=== PATIENT | male | born 1975 | race Caucasian/White ===

== ENCOUNTER 2016-09-12 20:06 | Emergency (ER) | payer SELFPAY ==
[~2016-09-12] VITALS: Ht 167.6 cm; Wt 91.8 kg
[~2016-09-12 20:06] MED LIST: BACT800T5 PO; CLIN1CAP5 PO; PRED20 PO; VENTAER INH; ZITHTAB6 PO
[2016-09-12 20:08] VITALS: BP 122/71; PULSE 100; RESP 16; TEMP 98.8; O2SAT 96
--- NOTE | 2016-09-12 22:10 | PD ---
HPI Chief Complaint: Edema Time Seen by Provider: 22:10 Travel History International Travel<30 days: No Contact w/Intl Traveler<30days: No Traveled to known affect area: No History of Present Illness HPI 40-year-old male with a history of IV drug use presents to the emergency department for evaluation of left wrist and hand swelling for 2 days. The patient states that he does inject into his left wrist and arm. States that he uses IV Dilaudid and cocaine, last used these drugs 2 days ago. States that he checked himself into [facility] yesterday. States he was having a little bit of swelling and pain in the left wrist and hand so he was started on Bactrim and Keflex by the facility. States that today the swelling and pain worsened and he had a fever of 103F 4 hours ago at the facility, was given Motrin for his fever which also slightly improved his pain. Denies any injury or trauma to the hand or wrist. Denies any other medical conditions. Denies, chills, nausea, vomiting, numbness or tingling, cough or cold symptoms, chest pain, shortness of breath. No other complaints. PFSH Past Medical History Hx Anticoagulant Therapy: No Bipolar Disorder: Yes Depression: Yes Cardiovascular Problems: No Chemotherapy: No Cerebrovascular Accident: No Diabetes: No Diminished Hearing: No Musculoskeletal: Yes (CHRONIC LOW BACK PAIN) Respiratory: No Immunizations Current: No Past Surgical History Hysterectomy: No Oral Surgery: Yes (hx tmj, ROOT CANAL RT UPPER) Tonsillectomy: Yes (AND ADNOIDS AGE 14) Social History Alcohol Use: No (PT STATES HE QUIT) Tobacco Use: Yes (1/2 PPD) Substance Use: Yes (cocaine and dilaudid iv use) Allergies-Medications (Allergen,Severity, Reaction): Coded Allergies: *MDRO Multi-Drug Resistant Organism (Verified Allergy, Unknown, 09/12/16) MRSA Reported Meds & Prescriptions Reported Meds & Active Scripts Active Bactrim DS (Sulfamethoxazole-Trimethoprim) 800-160 Mg Tab 1 Tab PO BID 14 Days Clindamycin (Clindamycin HCl) 150 Mg Cap 300 Mg PO Q6H 14 Days Review of Systems Except as stated in HPI: all other systems reviewed are Neg Physical Exam Narrative GENERAL: Well-nourished and well-developed male patient in no acute distress. SKIN: Warm and dry. HEAD: Normocephalic and atraumatic. EYES: No injection, drainage, or hyphema noted. PERRLA. EOMI. ENT: No nasal drainage noted. Oropharynx is clear. NECK: Supple and the trachea is midline. CARDIOVASCULAR: Regular rate and rhythm. RESPIRATORY: Breath sounds are equal bilaterally with no accessory muscle use, wheezing, rhonchi, or crackles. GASTROINTESTINAL: Abdomen is soft, non-tender, and nondistended. MUSCULOSKELETAL: There is swelling along the radial aspect of the left wrist with tenderness to palpation, the left dorsal hand is swollen and tender as well. Warm to touch with my erythema. No obvious deformities, cyanosis, or ecchymosis is present throughout the upper and lower extremities. Patient has full range of motion without any signs of neurovascular compromise. Radial pulses 2+ bilaterally. NEUROLOGICAL: Awake, alert, and oriented. Normal speech and gait. Cranial nerves are grossly intact. Data Data Last Documented VS Vital Signs Date Time Temp Pulse Resp B/P Pulse Ox O2 Delivery O2 Flow Rate FiO2 09/12/16 22:11 16 09/12/16 20:08 98.8 100 122/71 96 Room Air Orders Complete Blood Count With Diff (09/12/16 22:07) Comprehensive Metabolic Panel (09/12/16 22:07) Lactic Acid Sepsis Protocol (09/12/16 22:07) Blood Culture (09/12/16 22:07) Ecg Monitoring (09/12/16 22:07) Iv Access Insert/Monitor (09/12/16 22:07) C-Reactive Protein (Crp) (09/12/16 22:07) Westergren Sedimentation Rate (09/12/16 22:07) Ketorolac Inj (Toradol Inj) (09/12/16 22:15) [facility] Medical Decision Making Medical Screen Exam Complete: Yes Emergency Medical Condition: Yes Differential Diagnosis Cellulitis versus abscess versus IV drug use Narrative Course 40-year-old male presents to the emergency department for evaluation of left hand and wrist swelling and pain at the site of IV injection. Patient is afebrile here in the emergency department. His heart rate is tachycardic at 100 bpm. Otherwise vital signs are stable. IV access is obtained, labs drawn and sent. Patient is administered Toradol 30 mg IV for pain. Patient signed out to Dr. Webb who will assume care of the patient and disposition. Chelsea Elkins 27, 2017 22:10
[2016-09-12] MEDS ORDERED: KETOROLAC TROMETHAMINE 30 MG/ML (IVP) VIAL IV PUSH ONE (22:15)
--- NOTE | 2016-09-12 23:53 | PD ---
Physical Exam Date Seen by Provider: Sep 12, 2016 Time Seen by Provider: 22:30 Narrative Patient presents to us from [facility] for a swollen, painful lesion on his left forearm. He also reportedly had a fever. Data Data Last Documented VS Vital Signs Date Time Temp Pulse Resp B/P Pulse Ox O2 Delivery O2 Flow Rate FiO2 09/12/16 22:11 16 09/12/16 20:08 98.8 100 122/71 96 Room Air Orders Complete Blood Count With Diff (09/12/16 22:07) Comprehensive Metabolic Panel (09/12/16 22:07) Lactic Acid Sepsis Protocol (09/12/16 22:07) Blood Culture (09/12/16 22:07) Ecg Monitoring (09/12/16 22:07) Iv Access Insert/Monitor (09/12/16 22:07) C-Reactive Protein (Crp) (09/12/16 22:07) Westergren Sedimentation Rate (09/12/16 22:07) Ketorolac Inj (Toradol Inj) (09/12/16 22:15) Labs Laboratory Tests Test 09/12/16 23:45 White Blood Count 14.2 TH/MM3 Red Blood Count 4.79 MIL/MM3 Hemoglobin 13.7 GM/DL Hematocrit 40.5 % Mean Corpuscular Volume 84.6 FL Mean Corpuscular Hemoglobin 28.7 PG Mean Corpuscular Hemoglobin 33.9 % Concent Red Cell Distribution Width 15.8 % Platelet Count 239 TH/MM3 Mean Platelet Volume 7.7 FL Neutrophils (%) (Auto) 64.7 % Lymphocytes (%) (Auto) 26.7 % Monocytes (%) (Auto) 7.0 % Eosinophils (%) (Auto) 1.0 % Basophils (%) (Auto) 0.6 % Neutrophils # (Auto) 9.2 TH/MM3 Lymphocytes # (Auto) 3.8 TH/MM3 Monocytes # (Auto) 1.0 TH/MM3 Eosinophils # (Auto) 0.1 TH/MM3 Basophils # (Auto) 0.1 TH/MM3 CBC Comment DIFF FINAL Differential Comment Erythrocyte Sedimentation Rate 15 mm/hr Sodium Level 139 MEQ/L Potassium Level 3.9 MEQ/L Chloride Level 105 MEQ/L Carbon Dioxide Level 28.0 MEQ/L Anion Gap 6 MEQ/L Blood Urea Nitrogen 14 MG/DL Creatinine 1.02 MG/DL Estimat Glomerular Filtration 80 ML/MIN Rate Random Glucose 90 MG/DL Lactic Acid Level 2.7 mmol/L Calcium Level 8.5 MG/DL Total Bilirubin 0.3 MG/DL Aspartate Amino Transf 19 U/L (AST/SGOT) Alanine Aminotransferase 55 U/L (ALT/SGPT) Alkaline Phosphatase 57 U/L C-Reactive Protein 2.20 MG/DL Total Protein 7.7 GM/DL Albumin 3.8 GM/DL MDM Supervised Visit with WICHO: Yes Narrative Course I, Dr. Webb, have reviewed the advance practice practitioner's documentation and am in agreement, met with the patient face to face, made the diagnosis, and the medical decision making was done by me. *My assessment and Findings: He has erythema, warmth, swelling and tenderness on the left forearm. There is no fluctuance. CBC & BMP Diagram 09/12/16 23:45 Sedimentation rate is 15. Lactic acid is 2.7. C-reactive protein is 2.2. I was in the process of ordering antibiotics for him when he reported that he wanted to leave AMA. He is reportedly a voluntary patient. He states that he has antibiotics for the cellulitis in his left arm. He is lucid and capable of making the decision to leave AMA. AMA: The risks of leaving against medical advice without further evaluation treatment were discussed with the patient. These risks include sepsis, osteomyelitis, eventual amputation and . Diagnosis Primary Impression: Cellulitis Qualified Code: L03.114 - Cellulitis of left upper extremity Disposition: 07 AGAINST MEDICAL ADVICE Condition: Stable Ayana Webb MD Sep 12, 2016 23:53
[2016-09-12 23:56] LABS: AUTOMATED NEUTROPHIL # 9.2 TH/MM3 (1.8-7.7); BASOPHIL # 0.1 TH/MM3 (0-0.2); BASOPHIL % 0.6 % (0.0-2.0); EOSINOPHIL # 0.1 TH/MM3 (0-0.4); HEMATOCRIT 40.5 % (39.0-51.0); HEMO FLAGS DIFF FINAL; LYMPH % 26.7 % (9.0-44.0); LYMPHOCYTE # 3.8 TH/MM3 (1.0-4.8); MEAN CELL VOLUME 84.6 FL (80.0-100.0); MEAN CORPUSCULAR HEMOGLOBIN 28.7 PG (27.0-34.0); MEAN CORPUSCULAR HGB CONC 33.9 % (32.0-36.0); NEUT % 64.7 % (16.0-70.0); PLATELET COUNT 239 TH/MM3 (150-450); RED BLOOD COUNT 4.79 MIL/MM3 (4.50-5.90); RED CELL DISTRIBUTION WIDTH 15.8 % (11.6-17.2); WHITE BLOOD COUNT 14.2 TH/MM3 (4.0-11.0)
[2016-09-13 00:26] LABS: ANION GAP 6 MEQ/L (5-15); AST (GOT) 19 U/L (15-37); BLOOD UREA NITROGEN 14 MG/DL (7-18); CHLORIDE 105 MEQ/L (98-107); GLOMERULAR FILTRATION RATE 80 ML/MIN (>89); POTASSIUM 3.9 MEQ/L (3.5-5.1); SODIUM (NA) 139 MEQ/L (136-145)
[2016-09-13 00:29] LABS: ALKALINE PHOSPHATASE 57 U/L (45-117); ALT (GPT) 55 U/L (12-78); TOTAL BILIRUBIN ADULT 0.3 MG/DL (0.2-1.0)
[2016-09-13] MEDS ORDERED: LORazepam 2 MG/ML VIAL IV PUSH ONE (01:00)
[2016-09-13] MEDS ORDERED: VANCOMYCIN INJ 1,000 MG in SODIUM CHLOR 0.9% 250 ML INJ 250 ML IV ONE (01:00)
[2016-09-13] MEDS ORDERED: PIPERACIL-TAZO 4.5 GM PREMIX 100 ML IV ONE (01:00)
[2016-09-13 01:45] VITALS: BP 116/71; PULSE 92; RESP 16; O2SAT 100
[2016-09-13 01:49] LABS: LACTIC ACID GHOST NOT REPORTABLE
[2016-09-14] MEDS ORDERED: CEPH-460 PO (18:43)
[2016-09-14] MEDS ORDERED: CLIN1CAP5 PO (20:24)
== END 2016-09-13 03:34 ==
LOC: NEPA 20:06
DX: L03.114 Cellulitis of left upper limb (principal); R50.9 Fever, unspecified; R00.0 Tachycardia, unspecified; F17.200 Nicotine dependence, unspecified, uncomplicated; Z86.59 Personal history of other mental and behavioral disorders; Z87.39 Personal history of other diseases of the musculoskeletal system and connective tissue; Z53.29 Procedure and treatment not carried out because of patient's decision for other reasons
CPT/HCPCS: 80053; 83605; 85025; 85652; 86140; 87040; 96365; 96367; 96375; 99283; J1885; J2060; J2543; J3370; J7050

== ENCOUNTER 2016-09-14 15:05 | Emergency (ER) | payer SELFPAY ==
[~2016-09-14] VITALS: Ht 167.6 cm; Wt 91.5 kg
[2016-09-14 15:06] VITALS: BP 138/66; PULSE 92; RESP 20; TEMP 98.5; O2SAT 99
--- NOTE | 2016-09-14 17:55 | PD ---
HPI Chief Complaint: Skin Problem Time Seen by Provider: 17:54 Travel History International Travel<30 days: No Contact w/Intl Traveler<30days: No Traveled to known affect area: No History of Present Illness HPI 40-year-old male presents to the emergency department for evaluation of worsening left forearm abscess. Patient has history of IV drug use. He was seen and evaluated 2 days ago and left against medical advice. Patient reports worsening, pain, redness, swelling. Pain is an 8 out of 10 to a 10 out of 10. This is exacerbated by movement or touch. Patient states he has been taking antibiotics that were given to him. Denies any chest tightness. No difficulty breathing. Does report subjective fever and chills. No other symptoms to report. PFSH Past Medical History Hx Anticoagulant Therapy: No Bipolar Disorder: Yes Depression: Yes Cardiovascular Problems: No Chemotherapy: No Cerebrovascular Accident: No Diabetes: No Diminished Hearing: No Musculoskeletal: Yes (CHRONIC LOW BACK PAIN) Respiratory: No Immunizations Current: Yes Past Surgical History Hysterectomy: No Oral Surgery: Yes (hx tmj, ROOT CANAL RT UPPER) Tonsillectomy: Yes (AND ADNOIDS AGE 14) Social History Alcohol Use: No (PT STATES HE QUIT) Tobacco Use: Yes (1/2 PPD) Substance Use: Yes (cocaine and dilaudid iv use) Allergies-Medications (Allergen,Severity, Reaction): Coded Allergies: *MDRO Multi-Drug Resistant Organism (Verified Allergy, Unknown, 09/14/16) MRSA Reported Meds & Prescriptions Reported Meds & Active Scripts Active Bactrim DS (Sulfamethoxazole-Trimethoprim) 800-160 Mg Tab 1 Tab PO BID 14 Days Reported Keflex (Cephalexin) 500 Mg Cap 500 Mg PO Q8H Review of Systems Except as stated in HPI: all other systems reviewed are Neg Physical Exam Narrative GENERAL: Unkempt but well-nourished male patient, ambulatory no acute distress SKIN: There is an indurated area in the distal left forearm which measures about 7 cm in diameter. It is fluctuant but there is no pointing or drainage. There is a zone of inflammation around it but no lymphangitis. HEAD: Atraumatic. Normocephalic. EYES: Pupils equal and round. No scleral icterus. No injection or drainage. ENT: No nasal bleeding or discharge. Mucous membranes pink and moist. NECK: Trachea midline. No JVD. CARDIOVASCULAR: Elevated rate and rhythm. No murmur appreciated. RESPIRATORY: No accessory muscle use. Clear to auscultation. Breath sounds equal bilaterally. GASTROINTESTINAL: Abdomen soft, non-tender, nondistended. Hepatic and splenic margins not palpable. MUSCULOSKELETAL: No obvious deformities. No clubbing. No cyanosis. . NEUROLOGICAL: Awake and alert. No obvious cranial nerve deficits Normal speech. Data Data Last Documented VS Vital Signs Date Time Temp Pulse Resp B/P Pulse Ox O2 Delivery O2 Flow Rate FiO2 09/14/16 19:11 89 16 123/70 97 Room Air 09/14/16 18:44 99.2 Orders Complete Blood Count With Diff (09/14/16 17:54) Basic Metabolic Panel (Bmp) (09/14/16 17:54) Lactic Acid Sepsis Protocol (09/14/16 17:54) Blood Culture (09/14/16 17:56) Labs Laboratory Tests Test 09/14/16 18:18 White Blood Count 12.0 TH/MM3 Red Blood Count 4.70 MIL/MM3 Hemoglobin 13.4 GM/DL Hematocrit 39.4 % Mean Corpuscular Volume 83.9 FL Mean Corpuscular Hemoglobin 28.4 PG Mean Corpuscular Hemoglobin 33.9 % Concent Red Cell Distribution Width 15.7 % Platelet Count 269 TH/MM3 Mean Platelet Volume 7.7 FL Neutrophils (%) (Auto) 70.3 % Lymphocytes (%) (Auto) 20.8 % Monocytes (%) (Auto) 6.1 % Eosinophils (%) (Auto) 2.3 % Basophils (%) (Auto) 0.5 % Neutrophils # (Auto) 8.4 TH/MM3 Lymphocytes # (Auto) 2.5 TH/MM3 Monocytes # (Auto) 0.7 TH/MM3 Eosinophils # (Auto) 0.3 TH/MM3 Basophils # (Auto) 0.1 TH/MM3 CBC Comment DIFF FINAL Differential Comment Sodium Level 140 MEQ/L Potassium Level 4.4 MEQ/L Chloride Level 106 MEQ/L Carbon Dioxide Level 26.3 MEQ/L Anion Gap 8 MEQ/L Blood Urea Nitrogen 14 MG/DL Creatinine 0.84 MG/DL Estimat Glomerular Filtration 101 ML/MIN Rate Random Glucose 98 MG/DL Lactic Acid Level 1.2 mmol/L Calcium Level 8.8 MG/DL [facility] Medical Decision Making Medical Screen Exam Complete: Yes Emergency Medical Condition: Yes Medical Record Reviewed: Yes Differential Diagnosis Abscess versus tenosynovitis versus cellulitis versus sepsis Narrative Course 40-year-old male presents to emergency department for evaluation. Workup is initiated in triage. Once a medical bed becomes available, patient will be transferred and care assumed by that provider. Condition: Stable Becca Chang Sep 14, 2016 17:54
[2016-09-14 18:31] LABS: AUTOMATED NEUTROPHIL # 8.4 TH/MM3 (1.8-7.7); BASOPHIL # 0.1 TH/MM3 (0-0.2); BASOPHIL % 0.5 % (0.0-2.0); EOSINOPHIL # 0.3 TH/MM3 (0-0.4); EOSINOPHIL % 2.3 % (0.0-4.0); HEMATOCRIT 39.4 % (39.0-51.0); HEMO FLAGS DIFF FINAL; LYMPH % 20.8 % (9.0-44.0); LYMPHOCYTE # 2.5 TH/MM3 (1.0-4.8); MEAN CELL VOLUME 83.9 FL (80.0-100.0); MEAN CORPUSCULAR HEMOGLOBIN 28.4 PG (27.0-34.0); MEAN CORPUSCULAR HGB CONC 33.9 % (32.0-36.0); MONO % 6.1 % (0.0-8.0); NEUT % 70.3 % (16.0-70.0); PLATELET COUNT 269 TH/MM3 (150-450); RED CELL DISTRIBUTION WIDTH 15.7 % (11.6-17.2)
[2016-09-14] MEDS ORDERED: CEPH-460 PO (18:43)
[2016-09-14 18:44] VITALS: BP 119/79; PULSE 87; RESP 16; TEMP 99.2; O2SAT 96
[2016-09-14 18:47] LABS: BICARBONATE 26.3 MEQ/L (21.0-32.0); POTASSIUM 4.4 MEQ/L (3.5-5.1)
[2016-09-14 19:11] VITALS: BP 123/70; PULSE 89; RESP 16; O2SAT 97
[2016-09-14] MEDS ORDERED: ACETAMINOPHEN/HYDROcodone 325 MG/5 MG TAB PO ONE (19:45)
[2016-09-14] MEDS ORDERED: LIDOCAINE 1%/EPINEPHrine 1:100,000 SOLN 20 ML VIAL INFIL ONE (19:45)
--- NOTE | 2016-09-14 19:45 | PD ---
Physical Exam Time Seen by Provider: 19:45 Narrative 40-year-old male with a history of IV drug use presents to the emergency department for evaluation of left wrist swelling and pain. Patient was seen by provider in triage were initiated workup, please see her documentation. Patient was seen by this provider 3 days ago for left wrist swelling and cellulitis. I signed him out to my attending physician who wanted to admit the patient for IV antibiotics but the patient refused admission because he wanted to go back to [facility] for detox. The patient has been taking outpatient Bactrim and Keflex for the past 4 days. States that the redness and pain is worsened. Denies any fevers, chills, nausea, vomiting. No other complaints. GENERAL: Well-nourished and well-developed pleasant patient in no acute distress who is nontoxic appearing. SKIN: Warm and dry. There is a fluctuant tender erythematous abscess to the dorsal radial aspect of the left wrist, there is erythema to the left forearm surrounding the abscess. No discharge or drainage. HEAD: Normocephalic and atraumatic. EYES: No injection, drainage, or hyphema noted. PERRLA. EOMI. ENT: No nasal drainage noted. Oropharynx is clear. NECK: Supple and the trachea is midline. CARDIOVASCULAR: Regular rate and rhythm. RESPIRATORY: Breath sounds are equal bilaterally with no accessory muscle use, wheezing, rhonchi, or crackles. GASTROINTESTINAL: Abdomen is soft, non-tender, and nondistended. MUSCULOSKELETAL: No obvious deformities, swelling, cyanosis, or ecchymosis is present throughout the upper and lower extremities. Patient has full range of motion without any signs of neurovascular compromise. NEUROLOGICAL: Awake, alert, and oriented. Normal speech and gait. Cranial nerves are grossly intact. Data Data Last Documented VS Vital Signs Date Time Temp Pulse Resp B/P Pulse Ox O2 Delivery O2 Flow Rate FiO2 09/14/16 19:11 89 16 123/70 97 Room Air 09/14/16 18:44 99.2 Orders Complete Blood Count With Diff (09/14/16 17:54) Basic Metabolic Panel (Bmp) (09/14/16 17:54) Lactic Acid Sepsis Protocol (09/14/16 17:54) Blood Culture (09/14/16 17:56) Acetamin-Hydrocod 325-5 Mg (Aniwa 5-325 (09/14/16 19:45) Wound Culture And Gram Stain (09/14/16 19:44) Lidocai-Epi 1%-1:100,000 Inj (Xylocaine- (09/14/16 19:45) Clindamycin (Cleocin) (09/14/16 20:30) Lorazepam (Ativan) (09/14/16 20:30) Labs Laboratory Tests Test 09/14/16 18:18 White Blood Count 12.0 TH/MM3 Red Blood Count 4.70 MIL/MM3 Hemoglobin 13.4 GM/DL Hematocrit 39.4 % Mean Corpuscular Volume 83.9 FL Mean Corpuscular Hemoglobin 28.4 PG Mean Corpuscular Hemoglobin 33.9 % Concent Red Cell Distribution Width 15.7 % Platelet Count 269 TH/MM3 Mean Platelet Volume 7.7 FL Neutrophils (%) (Auto) 70.3 % Lymphocytes (%) (Auto) 20.8 % Monocytes (%) (Auto) 6.1 % Eosinophils (%) (Auto) 2.3 % Basophils (%) (Auto) 0.5 % Neutrophils # (Auto) 8.4 TH/MM3 Lymphocytes # (Auto) 2.5 TH/MM3 Monocytes # (Auto) 0.7 TH/MM3 Eosinophils # (Auto) 0.3 TH/MM3 Basophils # (Auto) 0.1 TH/MM3 CBC Comment DIFF FINAL Differential Comment Sodium Level 140 MEQ/L Potassium Level 4.4 MEQ/L Chloride Level 106 MEQ/L Carbon Dioxide Level 26.3 MEQ/L Anion Gap 8 MEQ/L Blood Urea Nitrogen 14 MG/DL Creatinine 0.84 MG/DL Estimat Glomerular Filtration 101 ML/MIN Rate Random Glucose 98 MG/DL Lactic Acid Level 1.2 mmol/L Calcium Level 8.8 MG/DL [facility] [place] Supervised Visit with WICHO: No Differential Diagnosis Abscess versus cellulitis versus cyst versus IV drug use Narrative Course 40-year-old male presents to the emergency department for evaluation of left wrist abscess. Patient is afebrile, vital signs are stable. I saw the patient 3 days ago for the same complaint, he has been taking the antibiotics as prescribed for 4 days. At the time when I saw him there was no clear abscess for drainage, appeared to be only cellulitis. Now there is an abscess to drain , I&D is performed at bedside. Labs were ordered to provider in triage. CBC shows elevated white blood count 12.0, this has gone down from 14.2 three days ago. BMP is unremarkable. Lactic acid is 1.2, this has also decreased from 2.7 three days ago. Patient's lab work has improved but his abscess and cellulitis has worsened. Ultimately I think it needed I&D and will improve from here on. We will however take him off Keflex, continue Bactrim, and add Clindamycin. He will be transferred back to [facility]. I discussed the case with my attending physician Dr. Covarrubias who is aware of the patients history, physical examination findings, and treatment plan. Procedures Procedure Narrative After the risks and benefits were discussed the following procedure was performed: INCISION AND DRAINAGE OF ABSCESS: The area was prepped and was sterilely draped. A subcutaneous wheal of 1 % Xylocaine with epinephrine with a total number [-] mL was used to anesthetize the area. The area was properly anesthetized. A number [-] scalpel was used to make a [-] -cm incision across the area of the abscess. Cultures were obtained. The abscess was drained an irrigated with normal saline. Quarter inch iodoform packing was placed in the wound. Sterile dressing applied. Patient advised to have packing removed in two days. Diagnosis Primary Impression: Abscess Additional Impressions: Cellulitis Qualified Code: L03.114 - Cellulitis of left upper extremity IVDU (intravenous drug user) Referrals: Primary Care Physician Patient Instructions: Abscess (ED), General Instructions Additional Instruction: Apply warm compresses. Have packing removed in 2 days. Stop Keflex. Continue Bactrim. Start taking Clindamycin. Follow-up with your Primary Care Physician. Return to the ED for any acute worsening of symptoms. Med/Other Pt SpecificInfo: Prescription(s) given Scripts Clindamycin 150 Mg Whe936 Mg PO Q6H 10 Days Ref 0 Prov:Yoanna Covarrubias MD 09/14/16 Disposition: 01 DISCHARGE HOME Condition: Stable Chelsea Elkins Sep 14, 2016 19:45
[2016-09-14] MEDS ORDERED: CLIN1CAP5 PO (20:24)
[2016-09-14] MEDS ORDERED: LORazepam 1 MG TAB PO ONE (20:30)
[2016-09-14] MEDS ORDERED: CLINDAMYCIN 150 MG CAP PO ONE (20:30)
[2016-09-14] MEDS ORDERED: IBUPROFEN 800 MG TAB PO ONE (21:15)
== END 2016-09-14 21:09 | disposition home or self-care (01) ==
LOC: NETRI 15:05 → NEPC 21:09
DX: L02.414 Cutaneous abscess of left upper limb (principal); L03.114 Cellulitis of left upper limb; F19.90 Other psychoactive substance use, unspecified, uncomplicated; B95.4 Other streptococcus as the cause of diseases classified elsewhere; F17.200 Nicotine dependence, unspecified, uncomplicated; Z86.59 Personal history of other mental and behavioral disorders; Z87.39 Personal history of other diseases of the musculoskeletal system and connective tissue
CPT/HCPCS: 10061; 80048; 83605; 85025; 87040; 87070; 87205

== ENCOUNTER 2016-10-20 20:33 | Emergency (ER) | payer SELFPAY ==
[~2016-10-20] VITALS: Ht 167.6 cm; Wt 92.7 kg
[~2016-10-20 20:33] MED LIST changes: +CEPH-460 PO; -PRED20 PO; -VENTAER INH; -ZITHTAB6 PO
[2016-10-20 20:37] VITALS: BP 162/81; PULSE 106; RESP 16; TEMP 97.1; O2SAT 99
[2016-10-20] MEDS ORDERED: SODIUM CHLOR 0.9% 1000 ML INJ 1,000 ML IV SCH (20:48)
[2016-10-20] MEDS ORDERED: methylPREDNISolone SOD SUCC 125 MG/2 ML VIAL IVP ONE (21:00)
[2016-10-20] MEDS ORDERED: diphenhydrAMINE HCL 50 MG/ML VIAL IVP ONE (21:00)
[2016-10-20] MEDS ORDERED: SODIUM CHLORIDE 0.9% FLUSH 10 ML FLUSH IV FLUSH PRN (21:00)
[2016-10-20] MEDS ORDERED: FAMOTIDINE 20 MG/2 ML VIAL IV PUSH ONE (21:00)
[2016-10-20 21:11] LABS: AUTOMATED NEUTROPHIL # 10.4 TH/MM3 (1.8-7.7); BASOPHIL # 0.1 TH/MM3 (0-0.2); BASOPHIL % 0.5 % (0.0-2.0); EOSINOPHIL % 0.1 % (0.0-4.0); HEMATOCRIT 40.6 % (39.0-51.0); HEMO FLAGS DIFF FINAL; LYMPH % 8.6 % (9.0-44.0); LYMPHOCYTE # 1.1 TH/MM3 (1.0-4.8); MEAN CELL VOLUME 83.4 FL (80.0-100.0); MEAN CORPUSCULAR HEMOGLOBIN 29.5 PG (27.0-34.0); MEAN CORPUSCULAR HGB CONC 35.3 % (32.0-36.0); MONO % 7.7 % (0.0-8.0); NEUT % 83.1 % (16.0-70.0); PLATELET COUNT 266 TH/MM3 (150-450); RED BLOOD COUNT 4.86 MIL/MM3 (4.50-5.90); RED CELL DISTRIBUTION WIDTH 15.1 % (11.6-17.2); WHITE BLOOD COUNT 12.5 TH/MM3 (4.0-11.0)
--- NOTE | 2016-10-20 21:19 | PD ---
HPI Chief Complaint: Allergic/Adverse Reaction Time Seen by Provider: 20:46 Travel History International Travel<30 days: No Contact w/Intl Traveler<30days: No Traveled to known affect area: No History of Present Illness HPI 40-year-old male presents for painful/burning/itching rash. Patient reports history of IVDU. He states he was clean for a while, then relapsed 4 days ago. Rash started yesterday. He has noted hive-like lesions and states his tongue feels slightly enlarged. No respiratory difficulty. No difficulty swallowing. No fevers. He has had some chills. He reports injecting methamphetamine. PFSH Past Medical History Hx Anticoagulant Therapy: No Bipolar Disorder: Yes Depression: Yes Cardiovascular Problems: No Chemotherapy: No Cerebrovascular Accident: No Diabetes: No Diminished Hearing: No Musculoskeletal: Yes (CHRONIC LOW BACK PAIN) Respiratory: No Immunizations Current: Yes Past Surgical History Hysterectomy: No Oral Surgery: Yes (hx tmj, ROOT CANAL RT UPPER) Tonsillectomy: Yes (AND ADNOIDS AGE 14) Social History Alcohol Use: Yes (1/2 litter a day last drink 09/09/16 ) Tobacco Use: Yes (1/2 PPD) Substance Use: Yes (cocaine and dilaudid iv use) Allergies-Medications (Allergen,Severity, Reaction): Coded Allergies: *MDRO Multi-Drug Resistant Organism (Verified Allergy, Unknown, 10/20/16) MRSA Reported Meds & Prescriptions Reported Meds & Active Scripts Active Clindamycin (Clindamycin HCl) 150 Mg Cap 300 Mg PO Q6H 10 Days Bactrim DS (Sulfamethoxazole-Trimethoprim) 800-160 Mg Tab 1 Tab PO BID 14 Days Reported Keflex (Cephalexin) 500 Mg Cap 500 Mg PO Q8H Review of Systems Except as stated in HPI: all other systems reviewed are Neg Physical Exam Narrative GENERAL: Well-developed, well-nourished, no acute distress. SKIN: Multiple healing wounds throughout body with mild surrounding erythema. There are some hive-like lesions on upper extremities and trunk. HEAD: Atraumatic. Normocephalic. EYES: Pupils equal and round. No scleral icterus. No injection or drainage. ENT: No nasal bleeding or discharge. Mucous membranes pink and moist. Mild tongue swelling. Normal phonation. No drooling or stridor. No lip swelling. NECK: Trachea midline. No JVD. CARDIOVASCULAR: Regular rate and rhythm. RESPIRATORY: No accessory muscle use. Clear to auscultation. Breath sounds equal bilaterally. GASTROINTESTINAL: Abdomen soft, non-tender, nondistended. MUSCULOSKELETAL: No obvious deformities. No clubbing. No cyanosis. No edema. NEUROLOGICAL: Awake and alert. No obvious cranial nerve deficits. Motor grossly within normal limits. Normal speech. PSYCHIATRIC: Appropriate mood and affect; insight and judgment normal. Data Data Last Documented VS Vital Signs Date Time Temp Pulse Resp B/P Pulse Ox O2 Delivery O2 Flow Rate FiO2 10/20/16 22:30 92 17 130/76 97 Room Air 10/20/16 20:37 97.1 Orders Basic Metabolic Panel (Bmp) (10/20/16 20:48) Complete Blood Count With Diff (10/20/16 20:48) Ecg Monitoring (10/20/16 20:48) Iv Access Insert/Monitor (10/20/16 20:48) Oximetry (10/20/16 20:48) Diphenhydramine Inj (Benadryl Inj) (10/20/16 21:00) Methylprednisolone So Succ Inj (Solumedr (10/20/16 21:00) Famotidine Inj (Pepcid Inj) (10/20/16 21:00) Sodium Chlor 0.9% 1000 Ml Inj (Ns 1000 M (10/20/16 20:48) Sodium Chloride 0.9% Flush (Ns Flush) (10/20/16 21:00) Tramadol (Ultram) (10/20/16 22:30) Labs Laboratory Tests Test 10/20/16 10/20/16 20:54 21:40 White Blood Count 12.5 TH/MM3 Red Blood Count 4.86 MIL/MM3 Hemoglobin 14.3 GM/DL Hematocrit 40.6 % Mean Corpuscular Volume 83.4 FL Mean Corpuscular Hemoglobin 29.5 PG Mean Corpuscular Hemoglobin 35.3 % Concent Red Cell Distribution Width 15.1 % Platelet Count 266 TH/MM3 Mean Platelet Volume 8.0 FL Neutrophils (%) (Auto) 83.1 % Lymphocytes (%) (Auto) 8.6 % Monocytes (%) (Auto) 7.7 % Eosinophils (%) (Auto) 0.1 % Basophils (%) (Auto) 0.5 % Neutrophils # (Auto) 10.4 TH/MM3 Lymphocytes # (Auto) 1.1 TH/MM3 Monocytes # (Auto) 1.0 TH/MM3 Eosinophils # (Auto) 0.0 TH/MM3 Basophils # (Auto) 0.1 TH/MM3 CBC Comment DIFF FINAL Differential Comment Sodium Level 135 MEQ/L Potassium Level 4.1 MEQ/L Chloride Level 101 MEQ/L Carbon Dioxide Level 26.1 MEQ/L Anion Gap 8 MEQ/L Blood Urea Nitrogen 19 MG/DL Creatinine 0.88 MG/DL Estimat Glomerular Filtration 95 ML/MIN Rate Random Glucose 122 MG/DL Calcium Level 8.4 MG/DL [facility] Medical Decision Making Medical Screen Exam Complete: Yes Emergency Medical Condition: Yes Differential Diagnosis Allergic reaction, urticaria, cellulitis, polysubstance abuse Narrative Course Initial vital signs showed a heart rate of 106 which improved to 92, blood pressure 162/81, pulse ox 99% on room air, oral temp of 97.1F. CBC shows WBC 12.5, hemoglobin 14.3, hematocrit 40.6, platelets 266, neutrophils 83.1%. BMP is essentially unremarkable. The patient was given a liter of normal saline IV, IV site Medrol, IV Benadryl, and IV Pepcid and is feeling much better. He is requesting something for pain. I will give him a dose of tramadol. There is no drooling or stridor on exam. He does have multiple excoriations on his upper and lower extremities with some surrounding cellulitis. He is afebrile. There is no murmur on cardiac exam. No splinter hemorrhages or [place] lesions. I do not believe he has bacteremia or endocarditis. Blood cultures were sent. He will be discharged home with a perception for Bactrim and Keflex to cover for his cellulitis. He is stable for discharge home with outpatient follow-up with a primary care physician this week. He was informed on when to return to the emergency department. He verbalizes understanding and agreement with plan. Diagnosis Primary Impression: Cellulitis Qualified Code: L03.90 - Cellulitis, unspecified cellulitis site Additional Impressions: Allergic reaction Qualified Code: T78.40XA - Allergic reaction, initial encounter IVDU (intravenous drug user) Referrals: Primary Care Physician 3 days Additional Instructions: Follow-up with a primary care physician this week. Take medications as prescribed. Return to the emergency department for worsening symptoms or any other concerns. Scripts Prednisone 50 Mg Tab50 Mg PO DAILY 5 Days Ref 0 Prov:Marquise Pulido MD 10/20/16 Cephalexin (Keflex)500 Mg [id number] Mg PO Q6H 10 Days Ref 0 Prov:Marquise Pulido MD 10/20/16 Sulfamethoxazole-Trimethoprim (Bactrim DS)800-160 Mg Tab1 Tab PO BID #20 TAB Ref 0 Prov:Marquise Pulido MD 10/20/16 Disposition: 01 DISCHARGE HOME Condition: Stable Marquise Pulido MD Oct 20, 2016 21:19
[2016-10-20 22:25] LABS: BICARBONATE 26.1 MEQ/L (21.0-32.0); POTASSIUM 4.1 MEQ/L (3.5-5.1)
[2016-10-20 22:30] VITALS: BP 130/76; PULSE 92; RESP 17; O2SAT 97
[2016-10-20] MEDS ORDERED: traMADol HCL 50 MG TAB PO ONE (22:30)
[2016-10-20] MEDS ORDERED: BACT800T5 PO (22:35)
[2016-10-20] MEDS ORDERED: CEPH-460 PO (22:35)
[2016-10-20] MEDS ORDERED: PRED50 PO (22:35)
[2016-10-20] MEDS ORDERED: SULFAMETHOXAZOLE-TRIMETHOPRIM DS 800-160 MG TAB PO ONE (22:45)
[2016-10-20] MEDS ORDERED: CEPHALEXIN MONOHYDRATE 500 MG CAP PO ONE (22:45)
== END 2016-10-20 22:50 | disposition home or self-care (01) ==
LOC: NEPD 20:33
DX: L03.90 Cellulitis, unspecified (principal)
CPT/HCPCS: 80048; 85025; 87040; 96361; 96374; 96375; 99283; J1200; J2930; J7030

== ENCOUNTER 2016-10-27 13:48 | Emergency (ER) | payer SELFPAY ==
[~2016-10-27] VITALS: Ht 167.6 cm; Wt 91.0 kg
[~2016-10-27 13:48] MED LIST changes: +PRED50 PO
[2016-10-27 13:50] VITALS: BP 166/93; PULSE 84; RESP 20; TEMP 98.3; O2SAT 99
--- NOTE | 2016-10-27 13:59 | PD ---
Physical Exam Time Seen by Provider: 13:56 Narrative 40 yo M c/o paraesthesia to L 1st,2nd,3rd digits x 1 weeks. Healing wound to dorsal aspect of L hand. Currently taking Keflex. Evaluated here after injury one week ago. Denies F,V. VSS Seen in triage, awaiting bed placement. Data Data Last Documented VS Vital Signs Date Time Temp Pulse Resp B/P Pulse Ox O2 Delivery O2 Flow Rate FiO2 10/27/16 13:50 98.3 84 20 166/93 99 Room Air [facility] Supervised Visit with WICHO: Chelsea Varma Oct 27, 2016 13:59
[2016-10-27] MEDS ORDERED: SERO100T PO (15:09)
[2016-10-27] MEDS ORDERED: LORA-392 PO (15:09)
--- NOTE | 2016-10-27 15:59 | PD ---
HPI Chief Complaint: Numbness/Tingling Time Seen by Provider: 15:29 Travel History International Travel<30 days: No Contact w/Intl Traveler<30days: No Traveled to known affect area: No History of Present Illness HPI So 40-year-old man, in recovery, presents complaining of left hand numbness and tingling. He's been sober now for the past several days at [facility]. He states that he cut his hand on a saw several days ago. Since then he said numbness and tingling on the dorsum of his second third and fourth finger on his left hand. States he cut initially was fairly deep. He has no motor disability in the left hand. He otherwise has been feeling generally well and healthy. History Past Medical History Narrative Medical Polysubstance abuse Social History Alcohol Use: No (last drink Monday) Tobacco Use: Yes (1 PPD) Allergies-Medications (Allergen,Severity, Reaction): Coded Allergies: *MDRO Multi-Drug Resistant Organism (Verified Allergy, Unknown, 10/27/16) MRSA Reported Meds & Prescriptions Reported Meds & Active Scripts Active Prednisone 50 Mg Tab 50 Mg PO DAILY 5 Days Keflex (Cephalexin) 500 Mg Cap 500 Mg PO Q6H 10 Days Bactrim DS (Sulfamethoxazole-Trimethoprim) 800-160 Mg Tab 1 Tab PO BID Clindamycin (Clindamycin HCl) 150 Mg Cap 300 Mg PO Q6H 10 Days Bactrim DS (Sulfamethoxazole-Trimethoprim) 800-160 Mg Tab 1 Tab PO BID 14 Days Reported Ativan (Lorazepam) 0.5 Mg Tab 0.5 Mg PO TID PRN Seroquel (Quetiapine Fumarate) 100 Mg Tab 150 Mg PO HS Review of Systems Except as stated in HPI: all other systems reviewed are Neg Physical Exam Narrative GENERAL: Well-appearing 40-year-old man, no acute distress. SKIN: Warm and dry. CARDIOVASCULAR: Warm and well perfused. RESPIRATORY: Normal rate and effort. MUSCULOSKELETAL: Patient with a healing laceration of the dorsum of the left hand. He claims of subjective decreased sensation over the second third and fourth fingers. Also involves the thumb. Numbness is worse on the dorsum of the fingers and on the volar surface. He has full range of motion of the hand although he has some pain and tenderness over the dorsum of the hand and worsening pain with making a fist. He has weakness in abduction of the fingers against resistance. No evidence of extensor tendon injury. NEUROLOGICAL: Awake and alert. No gross deficits. Data Data Last Documented VS Vital Signs Date Time Temp Pulse Resp B/P Pulse Ox O2 Delivery O2 Flow Rate FiO2 10/27/16 13:50 98.3 84 20 166/93 99 Room Air Orders Hand, Complete ([id number]) (10/27/16 ) Lorazepam (Ativan) (10/27/16 16:00) [facility] Medical Decision Making Medical Screen Exam Complete: Yes Emergency Medical Condition: Yes Interpretation(s) Left hand x-ray unremarkable. Differential Diagnosis Neurapraxia, nerve injury, tendon injury, other Narrative Course Medical decision making INITIAL: 40-year-old man with an injury to the dorsal left-handed no numbness and tingling on the second third and fourth fingers including a little bit abnormal, as well. This probably neurapraxia. I wonder if he had some element of a crush injury. I think it unlikely lacerated the peripheral nerves without injuring his tendons or anything more severe. He does have a little bit of motor weakness and finger abduction. This is pretty minor and he seems to have good functional use of the left hand. He looks otherwise well. We'll check x- ray to rule out fracture. Otherwise recommend supportive treatment expect improvement in the numbness and tingling over time. Diagnosis Primary Impression: Numbness of left hand Additional Instructions: Continue current medications. Continue local wound care. Return to the emergency department for any new or worsening symptoms. Med/Other Pt SpecificInfo: No Change to Meds Disposition: 01 DISCHARGE HOME Condition: Stable Salvatore Villa MD Oct 27, 2016 15:59
[2016-10-27] MEDS ORDERED: LORazepam 0.5 MG TAB PO ONE (16:00)
--- NOTE | 2016-10-27 16:08 | RADRPT ---
EXAM DATE/TIME: 10/27/2016 15:59 [facility] COMPARISON: No previous studies available for comparison. INDICATIONS : Left hand pain and laceration after cut with saw blade. MEDICAL HISTORY : None. SURGICAL HISTORY : None. ENCOUNTER: Initial ACUITY: 4 - 6 days PAIN SCORE: 0/10 LOCATION: Left middle hand, 1st-4th metacarpals. FINDINGS: Three view examination of the left hand demonstrates no soft tissue swelling, dislocation, or fractur e. The carpal bones appear intact. The interphalangeal and metacarpophalangeal joints are intact. Bony mineralization is normal. CONCLUSION: Unremarkable examination of the left hand. Salvatore Obregon MD on October 27, 2016 at 16:06 Board Certified Radiologist. This report was verified electronically.
== END 2016-10-27 16:46 | disposition home or self-care (01) ==
LOC: NEPD 13:48
DX: R20.0 Anesthesia of skin (principal); R20.2 Paresthesia of skin; F17.200 Nicotine dependence, unspecified, uncomplicated
CPT/HCPCS: 73130; 99283